=== PATIENT | female | born 1995 | race Two or more races ===

== ENCOUNTER 2016-10-10 20:32 | Observation (INO) | payer MEDICAID ==
[2016-10-10 21:16] LABS: Urine Blood Negative /uL (Negative); Urine Color Yellow (Yellow); Urine Mucus MANY (None Seen); Urine Nitrite Negative (Negative); Urine RBC 1 /hpf (0 - 4); Urine Squamous Epithelial Cell FEW /hpf (<5)
[2016-10-10 21:31] LABS: Urine Bilirubin POSITIVE (Negative); Urine Glucose 1+ mg/dL (Normal); Urine Ketone 4+ (Negative)
== END 2016-10-10 22:00 | disposition home or self-care (01) | DRG 566 ==
LOC: LDRP 20:32
PROVIDERS: ADMIT Specialist; ATTEND Specialist
DX: O26.892 Other specified pregnancy related conditions, second trimester (principal); Z3A.24 24 weeks gestation of pregnancy
CPT/HCPCS: 59025; 80307; 81001; 81002; G0378